=== PATIENT | male | born 1990 | race Caucasian/White ===

== ENCOUNTER 2019-09-30 17:39 | Emergency (ER) | payer OTHER ==
[~2019-09-30] VITALS: Ht 172.7 cm; Wt 82.0 kg
[2019-09-30] MEDS ORDERED: SODIUM CHLORIDE 0.9% 1,000 ML IV ONE (18:03)
[2019-09-30] MEDS ORDERED: KETOROLAC 30MG/ML VIAL IV STA (18:03)
[2019-09-30 18:31] LABS: HEMATOCRIT. 45.4 % (42.0-52.0); HEMOGLOBIN. 15.5 g/dL (14.0-18.0); MEAN CORPUSCULAR HEMOGLOBIN 30.4 pg (28.0-32.0); MEAN CORPUSCULAR VOLUME 89.3 fL (80.0-94.0); MEAN PLATELET VOLUME 9.7 fl (7.4-10.4); PLATELET 193 x1000/uL (130-400); RED BLOOD CELL COUNT 5.09 mill/uL (4.7-6.1)
[2019-09-30 18:38] LABS: CHLORIDE 103 mEq/L (98-107)
[2019-09-30] MEDS ORDERED: IOHEXOL-300 100 ML BOTTLE ONE ×2 (20:27→22:39)
[2019-09-30 20:52] LABS: PLATELET ESTIMATE NORMAL
[2019-10-01 01:50] VITALS: BP 131/68
== END 2019-10-01 01:51 | disposition short-term general hospital (02) ==
LOC: ER 17:39
DX: J36 Peritonsillar abscess (principal)
CPT/HCPCS: 36415; 70491; 80048; 85025; 96374; 99285; J1885; J7030; Q9967